=== PATIENT | male | born 1995 | race African-American/Black ===

== ENCOUNTER 2021-04-04 14:17 | Emergency (ER) | payer SELFPAY ==
[2021-04-04 14:49] VITALS: BP 131/91; PULSE 65; TEMP 97.8; BMI 21.9
[2021-04-04] MEDS ORDERED: ONDANSETRON 4 MG TABLET PO ONE (15:42)
[2021-04-04 16:54] LABS: BASO % 0.3 % (0-2.0); EOS % 1.7 % (0-4.5); HEMOGLOBIN 12.9 GM/dL (11.7-16.9); LYMPH % 20.5 % (8-40); MCH 31.3 pg (25.7-33.7); MEAN PLT VOLUME 8.1 fl (7.5-11.1); MONO % 8.2 % (3.8-10.2); NEUT % 69.3 % (42.8-82.8); PLATELET COUNT 239 10^3/uL (134-434); RBC 4.13 M/mm3 (4.00-5.60); RDW 12.9 % (11.9-15.9); WHITE BLOOD COUNT 7.1 K/mm3 (4.0-10.0)
[2021-04-04 17:19] LABS: ALBUMIN 4.2 g/dl (3.4-5.0); CALCIUM 9.4 mg/dL (8.5-10.1)
[2021-04-04 17:23] LABS: BILIRUBIN,TOTAL 0.4 mg/dL (0.2-1)
[2021-04-04 17:24] LABS: TOT PROT 7.3 g/dl (6.4-8.2)
[2021-04-04 17:59] LABS: PH,URINE 7.5 (5.0-8.0); URINE APPEARANCE CLEAR; URINE BILIRUBIN NEGATIVE (NEGATIVE); URINE COLOR YELLOW; URINE GLUCOSE (UA) NEGATIVE (NEGATIVE); URINE KETONE NEGATIVE (NEGATIVE); URINE LEUK ESTERASE NEGATIVE (NEGATIVE); URINE NITRITE NEGATIVE (NEGATIVE); URINE PROTEIN NEGATIVE (NEGATIVE)
[2021-04-04 18:08] LABS: COCAINE, UR NEGATIVE (NEGATIVE)
[2021-04-04 18:09] LABS: PHENCYCLIDINE,URINE NEGATIVE (NEGATIVE); URINE BARBITURATES NEGATIVE (NEGATIVE); URINE BENZODIAZEPINES NEGATIVE (NEGATIVE)
[2021-04-04 18:10] LABS: METHADONE, UR NEGATIVE (NEGATIVE); OPIATES, URI NEGATIVE (NEGATIVE); URINE AMPHETAMINES NEGATIVE (NEGATIVE)
== END 2021-04-04 19:50 | disposition home or self-care (01) ==
LOC: JER 14:17
DX: R06.02 Shortness of breath (principal); R11.2 Nausea with vomiting, unspecified
CPT/HCPCS: 36415; 71046-TC-FY; 76705-TC; 80053; 80307; 81003; 83690; 85025; 99285-25